=== PATIENT | female | born 1990 ===

== ENCOUNTER 2019-12-09 00:12 | Inpatient (IN) | payer SELFPAY ==
[2019-12-09] MEDS ORDERED: Sodium Chloride 0.9% 10 ML SDV IV PRN (00:31)
[2019-12-09] MEDS ORDERED: Misoprostol 200 MCG Tab PO PRN (00:31)
[2019-12-09] MEDS ORDERED: Carboprost Tromethamine 250 MCG/1 ML Amp IM PRN (00:31)
[2019-12-09] MEDS ORDERED: Terbutaline 1 MG/ML SDV SUBCUT PRN (00:31)
[2019-12-09] MEDS ORDERED: Lidocaine 1% 50 ML MDV INJECT PRN (00:31)
[2019-12-09] MEDS ORDERED: Water For Irrigation,Sterile 1,000 ML Container IRR PRN (00:31)
[2019-12-09] MEDS ORDERED: Ondansetron 4 MG/2 ML SDV IVPUSH PRN (00:31)
[2019-12-09] MEDS ORDERED: Nalbuphine 10 MG/1 ML Vial IVPUSH PRN (00:31)
[2019-12-09] MEDS ORDERED: Misoprostol 25 MCG (1/4 of 100 MCG) Tab PO PRN (00:31)
[2019-12-09] MEDS ORDERED: Sodium Chloride 0.9% 2.5 ML Syringe FLUSH PRN (00:31)
[2019-12-09] MEDS ORDERED: Methylergonovine 0.2 MG/1 ML Amp IM PRN (00:31)
[2019-12-09] MEDS ORDERED: Misoprostol 25 MCG (1/4 of 100 MCG) Tab VAG PRN (00:31)
[2019-12-09] MEDS ORDERED: Tranexamic Acid 1,000 MG in Sodium Chloride 0.9% 100 ML IV PRN (00:31)
[2019-12-09] MEDS ORDERED: Butorphanol 1 MG/ML SDV IVPUSH PRN (00:31)
[2019-12-09] MEDS ORDERED: Sodium Chloride 0.9% 10 ML Syringe FLUSH PRN (00:31)
[2019-12-09] MEDS ORDERED: Oxytocin/0.9 % Sodium Chloride 30 UNIT/500 ML BAG IV SCH ×2 (00:45)
[2019-12-09] MEDS: Lactated Ringers 1,000 ML IV SCH ×3 (00:54→07:03)
[2019-12-09] MEDS ORDERED: Ampicillin 2 GM in Sodium Chloride 0.9% 100 ML IV ONE (01:00)
[2019-12-09] MEDS ORDERED: Ampicillin 1 GM in Sodium Chloride 0.9% 50 ML IV SCH (05:00)
--- NOTE | 2019-12-09 05:12 | PCM.LDHP ---
L&D History of Present Illness - General Date of Service: 12/09/19 Admit Problem/Dx: Patient Status Order with Admit Dx/Problem 12/09/19 00:00 Patient Status [ADT] Routine Admission Diagnosis/Problem Admission Diagnosis/Problem 12/09/19 05:07 at 38 weeks (DHARMESH: 12/23/19) presenting for IOL due to hx of shoulder dystocia with first pregancy; A+, rubella immune, GBS positive; Source of Information: Patient History Limitations: Reports: No Limitations - History of Present Illness Improves with: Reports: None Worsens with: Reports: None Associated Symptoms: Reports: N - Related Data Allergies/Adverse Reactions: Allergies Allergy/AdvReac Type Severity Reaction Status Date / Time No Known Allergies Allergy Verified 12/09/19 00:25 Home Medications: Home Meds Esomeprazole [NexIUM] 20 mg PO DAILY 11/19/19 [History] Loratadine [Claritin] 1 tab PO PRN 12/09/19 [History] Past Medical History - Past Health History Medical/Surgical History: Denies Medical/Surgical History HEENT History: Reports: None Gastrointestinal History: Reports: 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: Psychiatric History: Reports: Anxiety - Infectious Disease History Infectious Disease History: Reports: Chicken Pox - Past Surgical History HEENT Surgical History: Reports: Oral Surgery GI Surgical History: Reports: Cholecystectomy Social & Family History - Family History Family Medical History: Noncontributory : Reports: Renal Disease/Insufficiency OBGYN: Reports: Endocrine/Metabolic: Reports: Diabetes, type II Oncologic: Reports: Colon - Tobacco Use Smoking Status *Q: Never Smoker - Caffeine Use Caffeine Use: Reports: Coffee - Recreational Drug Use Recreational Drug Use: No H&P Review of Systems - Review of Systems: Review Of Systems: See Below General: Reports: No Symptoms HEENT: Reports: No Symptoms Pulmonary: Reports: No Symptoms Cardiovascular: Reports: No Symptoms Gastrointestinal: Reports: No Symptoms Genitourinary: Reports: No Symptoms Musculoskeletal: Reports: No Symptoms Skin: Reports: No Symptoms Psychiatric: Reports: No Symptoms Neurological: Reports: No Symptoms Hematologic/Lymphatic: Reports: No Symptoms Immunologic: Reports: No Symptoms L&D Exam - Exam Exam: See Below - Vital Signs Weight: 216 lb - OB Specific Movement: Active Heart Tones: Present Heart Rate (FHR) Variability: Moderate (6-25 bmp) - Castro Score Castro Score Cervix Position: Midposition Castro Score Consistency: Soft Castro Score Effacement: 51-70% Castro Score Dilation: 3-4 cm Castro Score 's Station: -3 Castro Score Total: 7 - Exam General: Alert, Oriented, Cooperative Lungs: Normal Respiratory Effort Cardiovascular: Regular Rate, Regular Rhythm GI/Abdominal Exam: Soft, Non-Tender Rectal Exam: Deferred Genitourinary: Deferred Back Exam: Normal Inspection, Full Range of Motion Extremities: Normal Inspection, Normal Range of Motion, Non-Tender, Normal Capillary Refill Skin: Warm, Dry, Intact Psychiatric: Alert, Normal Affect, Normal Mood - Patient Data Lab Results Last 24 hrs: Laboratory Results - last 24 hr 12/09/19 12/09/19 Range/Units 00:43 00:43 WBC 10.28 (4.0-11.0) K/uL RBC 3.84 L (4.30-5.90) M/uL Hgb 11.3 L (12.0-16.0) g/dL Hct 35.3 L (36.0-46.0) % MCV 91.9 (80.0-98.0) fL MCH 29.4 (27.0-32.0) pg MCHC 32.0 (31.0-37.0) g/dL RDW Std Deviation 43.0 (28.0-62.0) fl RDW Coeff of Geremias 13 (11.0-15.0) % Plt Count 298 (150-400) K/uL MPV 10.80 (7.40-12.00) fL Blood Type A POSITIVE Antibody Screen NEGATIVE Result Diagrams: 12/09/19 00:43 - Problem List (1) Supervision of normal IUP (intrauterine ) in multigravida SNOMED Code(s): 764773552, 219343598, 046805237 ICD Code: Z34.80 - ENCOUNTER FOR SUPRVSN OF NORMAL , UNSP TRIMESTER Status: Acute Priority: High Current Visit: Yes Qualifiers: Trimester: third trimester Qualified Code(s): Z34.83 - Encounter for supervision of other normal , third trimester (2) History of shoulder dystocia in prior SNOMED Code(s): 502097915, 843328961 ICD Code: Z87.59 - PERSONAL HISTORY OF COMP OF PREG, CHLDBRTH AND THE PUERP Status: Acute Priority: High Current Visit: Yes Problem List Initiated/Reviewed/Updated: Yes Orders Last 24hrs: Active Orders 24 hr Category Date Time Status Patient Status [ADT] Routine ADT 12/09/19 00:00 Active Bedrest Bathroom Privileges [RC] ASDIRECTED Care 12/09/19 00:31 Active Communication Order [RC] ASDIRECTED Care 12/09/19 00:31 Active Communication Order [RC] ASDIRECTED Care 12/09/19 00:31 Active Communication Order [RC] ASDIRECTED Care 12/09/19 00:31 Active Heart Tones [RC] CONTINUOUS Care 12/09/19 00:31 Active Non Stress Test [RC] PER UNIT ROUTINE Care 12/09/19 00:31 Active May Shower [RC] ASDIRECTED Care 12/09/19 00:31 Active Notify Provider [RC] PRN Care 12/09/19 00:31 Active Notify Provider [RC] PRN Care 12/09/19 00:31 Active Notify Provider [RC] PRN Care 12/09/19 00:31 Active Notify Provider [RC] STAT Care 12/09/19 00:31 Active Oxygen Therapy [RC] ASDIRECTED Care 12/09/19 00:31 Active Up ad Nancie [RC] ASDIRECTED Care 12/09/19 00:31 Active Vaginal Exam [RC] PRN Care 12/09/19 00:31 Active Vaginal Exam [RC] PRN Care 12/09/19 00:31 Active Vital Signs [RC] PER UNIT ROUTINE Care 12/09/19 00:31 Active Vital Signs [RC] PER UNIT ROUTINE Care 12/09/19 00:31 Active RPR (SYPHILIS SERO) W/ RFLX [REF] Routine Lab 12/09/19 00:43 Received Ampicillin 1 gm Med 12/09/19 05:00 Active Sodium Chloride 0.9% [Normal Saline] 50 ml IV Q4H Butorphanol [Stadol] Med 12/09/19 00:31 Active 1 mg IVPUSH Q1H PRN Carboprost Tromethamine [Hemabate DS] Med 12/09/19 00:31 Active 250 mcg IM ASDIRECTED PRN Lactated Ringers [Ringers, Lactated] 1,000 ml Med 12/09/19 00:45 Active IV ASDIRECTED Lidocaine 1% [Xylocaine 1%] Med 12/09/19 00:31 Active 50 ml INJECT ONETIME PRN Methylergonovine [Methergine] Med 12/09/19 00:31 Active 0.2 mg IM ASDIRECTED PRN Nalbuphine [Nubain] Med 12/09/19 00:31 Active 10 mg IVPUSH Q1H PRN Ondansetron [Zofran] Med 12/09/19 00:31 Active 4 mg IVPUSH Q6H PRN Oxytocin/0.9 % Sodium Chloride [Oxytocin 30 Unit/500 ML Med 12/09/19 00:45 Active -NS] 30 unit in 500 ml IV TITRATE Oxytocin/0.9 % Sodium Chloride [Oxytocin 30 Unit/500 ML Med 12/09/19 00:45 Active -NS] 30 unit in 500 ml IV TITRATE Sodium Chloride 0.9% [Normal Saline] Med 12/09/19 00:31 Active 10 ml IV ASDIRECTED PRN Sodium Chloride 0.9% [Saline Flush] Med 12/09/19 00:31 Active 10 ml FLUSH ASDIRECTED PRN Sodium Chloride 0.9% [Saline Flush] Med 12/09/19 00:31 Active 2.5 ml FLUSH ASDIRECTED PRN Terbutaline [Brethine] Med 12/09/19 00:31 Active 0.25 mg SUBCUT ASDIRECTED PRN Tranexamic Acid [Cyklokapron] 1,000 mg Med 12/09/19 00:31 Active Sodium Chloride 0.9% [Normal Saline] 100 ml IV ONETIME Water For Irrigation,Sterile [Sterile Water for Med 12/09/19 00:31 Active Irrigation] 1,000 ml IRR ASDIRECTED PRN miSOPROStoL [Cytotec] Med 12/09/19 00:31 Active 200 mcg PO ONETIME PRN miSOPROStoL [Cytotec] Med 12/09/19 00:31 Active 25 mcg PO Q4H PRN miSOPROStoL [Cytotec] Med 12/09/19 00:31 Active 25 mcg VAG Q4H PRN Scalp Electrode [WOMSER] Per Unit Routine Oth 12/09/19 00:31 Ordered Medication Administration Instruction [OM.PC] Q3H Oth 12/09/19 00:45 Ordered Peripheral IV Insertion Adult [OM.PC] Routine Oth 12/09/19 00:31 Ordered Resuscitation Status Routine Resus Stat 12/09/19 00:31 Ordered Medication Orders Butorphanol Tartrate (Stadol) 1 mg IVPUSH Q1H PRN PRN Reason: Pain Carboprost Tromethamine (Hemabate Ds) 250 mcg IM ASDIRECTED PRN PRN Reason: Post Hemorrhage Ampicillin Sodium 1 gm/ Sodium (Chloride) 50 mls @ 100 mls/hr IV Q4H [facility] Last Admin: 12/09/19 04:42 Dose: 100 mls/hr Lactated Ringer's (Ringers, Lactated) 1,000 mls @ 150 mls/hr IV ASDIRECTED [facility] Last Infusion: 12/09/19 04:43 Dose: 150 mls/hr Infusion: 12/09/19 01:45 Dose: 0 mls/hr Admin: 12/09/19 00:54 Dose: 150 mls/hr Oxytocin/Sodium Chloride (Oxytocin 30 Unit/500 Ml-Ns) 30 unit in 500 mls @ 999 mls/hr IV TITRATE [facility] Oxytocin/Sodium Chloride (Oxytocin 30 Unit/500 Ml-Ns) 30 unit in 500 mls @ 2 mls/hr IV TITRATE [facility]; Protocol Tranexamic Acid 1,000 mg/ (Sodium Chloride) 110 mls @ 660 mls/hr IV ONETIME PRN PRN Reason: Bleeding Lidocaine HCl (Xylocaine 1%) 50 ml INJECT ONETIME PRN PRN Reason: Laceration repair Methylergonovine Maleate (Methergine) 0.2 mg IM ASDIRECTED PRN PRN Reason: Post Hemorrhage Misoprostol (Cytotec) 200 mcg PO ONETIME PRN PRN Reason: Post Hemorrhage Misoprostol (Cytotec) 25 mcg VAG Q4H PRN PRN Reason: Cervical Ripening Last Admin: 12/09/19 00:58 Dose: 25 mcg Misoprostol (Cytotec) 25 mcg PO Q4H PRN PRN Reason: Cervical Ripening Last Admin: 12/09/19 00:58 Dose: 25 mcg Nalbuphine HCl (Nubain) 10 mg IVPUSH Q1H PRN PRN Reason: Pain (severe 7-10) Ondansetron HCl (Zofran) 4 mg IVPUSH Q6H PRN PRN Reason: Nausea/Vomiting Sodium Chloride (Saline Flush) 10 ml FLUSH ASDIRECTED PRN PRN Reason: Keep Vein Open Sodium Chloride (Saline Flush) 2.5 ml FLUSH ASDIRECTED PRN PRN Reason: Keep Vein Open Sodium Chloride (Normal Saline) 10 ml IV ASDIRECTED PRN PRN Reason: IV Use Sterile Water (Sterile Water For Irrigation) 1,000 ml IRR ASDIRECTED PRN PRN Reason: delivery Terbutaline Sulfate (Brethine) 0.25 mg SUBCUT ASDIRECTED PRN PRN Reason: Tacysystole Assessment/Plan Comment:: Admit A: at 38 weeks (DHARMESH: 12/23/19), A+, Rubella immune, GBS positive P: Anticipate ; epidural PRN; Dr. Griggs updated.
--- NOTE | 2019-12-09 06:18 | PCM.PREANE ---
Preanesthetic Assessment - Anesthesia/Transfusion/Family Hx Anesthesia History: Prior Anesthesia Without Reaction Family History of Anesthesia Reaction: No Transfusion History: No Prior Transfusion(s) - Review of Systems General: No Symptoms Pulmonary: No Symptoms Cardiovascular: No Symptoms Gastrointestinal: No Symptoms Neurological: No Symptoms Other: Reports: None - Physical Assessment NPO Status Date: 12/09/19 NPO Status Time: 05:00 Height: 5 ft 2 in Weight: 97.976 kg ASA Class: 2 Mental Status: Alert & Oriented x3 Airway Class: Mallampati = 1 Dentition: Reports: Normal Dentition Thyro-Mental Finger Breadths: 3 ROM/Head Extension: Full Lungs: Clear to Auscultation, Normal Respiratory Effort Cardiovascular: Regular Rate, Regular Rhythm - Lab Values: Laboratory Last Values WBC 10.28 K/uL (4.0-11.0) 12/09/19 00:43 RBC 3.84 M/uL (4.30-5.90) L 12/09/19 00:43 Hgb 11.3 g/dL (12.0-16.0) L 12/09/19 00:43 Hct 35.3 % (36.0-46.0) L 12/09/19 00:43 MCV 91.9 fL (80.0-98.0) 12/09/19 00:43 MCH 29.4 pg (27.0-32.0) 12/09/19 00:43 MCHC 32.0 g/dL (31.0-37.0) 12/09/19 00:43 RDW Std Deviation 43.0 fl (28.0-62.0) 12/09/19 00:43 RDW Coeff of Geremias 13 % (11.0-15.0) 12/09/19 00:43 Plt Count 298 K/uL (150-400) 12/09/19 00:43 MPV 10.80 fL (7.40-12.00) 12/09/19 00:43 Blood Type A POSITIVE 12/09/19 00:43 Antibody Screen NEGATIVE 12/09/19 00:43 - Allergies Allergies/Adverse Reactions: Allergies Allergy/AdvReac Type Severity Reaction Status Date / Time No Known Allergies Allergy Verified 12/09/19 00:25 - Acknowledgements Anesthesia Type Planned: Epidural Pt an Appropriate Candidate for the Planned Anesthesia: Yes Alternatives and Risks of Anesthesia Discussed w Pt/Guardian: Yes Pt/Guardian Understands and Agrees with Anesthesia Plan: Yes PreAnesthesia Questionnaire - Past Health History Medical/Surgical History: Denies Medical/Surgical History HEENT History: Reports: None Gastrointestinal History: Reports: None [employer]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: Psychiatric History: Reports: Anxiety - Infectious Disease History Infectious Disease History: Reports: Chicken Pox - Past Surgical History HEENT Surgical History: Reports: Oral Surgery GI Surgical History: Reports: Cholecystectomy - SUBSTANCE USE Smoking Status *Q: Never Smoker Recreational Drug Use History: No - HOME MEDS Home Medications: Home Meds Esomeprazole [NexIUM] 20 mg PO DAILY 11/19/19 [History] Loratadine [Claritin] 1 tab PO PRN 12/09/19 [History] - CURRENT (IN HOUSE) MEDS Current Meds: Current Medications Butorphanol Tartrate (Stadol) 1 mg IVPUSH Q1H PRN PRN Reason: Pain Carboprost Tromethamine (Hemabate Ds) 250 mcg IM ASDIRECTED PRN PRN Reason: Post Hemorrhage Ampicillin Sodium 1 gm/ Sodium (Chloride) 50 mls @ 100 mls/hr IV Q4H [facility] Last Admin: 12/09/19 04:42 Dose: 100 mls/hr Lactated Ringer's (Ringers, Lactated) 1,000 mls @ 150 mls/hr IV ASDIRECTED [facility] Last Admin: 12/09/19 06:02 Dose: 999 mls/hr Oxytocin/Sodium Chloride (Oxytocin 30 Unit/500 Ml-Ns) 30 unit in 500 mls @ 999 mls/hr IV TITRATE [facility] Oxytocin/Sodium Chloride (Oxytocin 30 Unit/500 Ml-Ns) 30 unit in 500 mls @ 2 mls/hr IV TITRATE [facility]; Protocol Tranexamic Acid 1,000 mg/ (Sodium Chloride) 110 mls @ 660 mls/hr IV ONETIME PRN PRN Reason: Bleeding Lidocaine HCl (Xylocaine 1%) 50 ml INJECT ONETIME PRN PRN Reason: Laceration repair Methylergonovine Maleate (Methergine) 0.2 mg IM ASDIRECTED PRN PRN Reason: Post Hemorrhage Misoprostol (Cytotec) 200 mcg PO ONETIME PRN PRN Reason: Post Hemorrhage Misoprostol (Cytotec) 25 mcg VAG Q4H PRN PRN Reason: Cervical Ripening Last Admin: 12/09/19 00:58 Dose: 25 mcg Misoprostol (Cytotec) 25 mcg PO Q4H PRN PRN Reason: Cervical Ripening Last Admin: 12/09/19 00:58 Dose: 25 mcg Nalbuphine HCl (Nubain) 10 mg IVPUSH Q1H PRN PRN Reason: Pain (severe 7-10) Ondansetron HCl (Zofran) 4 mg IVPUSH Q6H PRN PRN Reason: Nausea/Vomiting Sodium Chloride (Saline Flush) 10 ml FLUSH ASDIRECTED PRN PRN Reason: Keep Vein Open Sodium Chloride (Saline Flush) 2.5 ml FLUSH ASDIRECTED PRN PRN Reason: Keep Vein Open Sodium Chloride (Normal Saline) 10 ml IV ASDIRECTED PRN PRN Reason: IV Use Sterile Water (Sterile Water For Irrigation) 1,000 ml IRR ASDIRECTED PRN PRN Reason: delivery Terbutaline Sulfate (Brethine) 0.25 mg SUBCUT ASDIRECTED PRN PRN Reason: Tacysystole Discontinued Medications Ampicillin Sodium 2 gm/ Sodium (Chloride) 100 mls @ 200 mls/hr IV ONETIME ONE Stop: 12/09/19 01:29 Last Admin: 12/09/19 00:54 Dose: 200 mls/hr
--- NOTE | 2019-12-09 08:38 | PCM.DEL ---
L & D Note - General Info Date of Service: 12/09/19 Mother's Due Date: 12/23/19 - Delivery Note Labor: Augmented by ARM, Augmented by Oxytocin Cervical Ripening Method: Misoprostil Delivery Outcome: Livebirth Delivery Method: Spontaneous Vaginal Delivery-Single Presentation: Vertex Nuchal Cord: None Anesthesia Type: Epidural Amniotic Fluid Description: Clear Episiotomy Type: None Laceration: None Placenta: Intact, Spontaneous Cord: 3 Vessels Estimated Blood Loss: 250 Resuscitation Needed: No [place]: Bulb Syringe, Stimulated Score 1 min: 8 Score 5 min: 9 Second Stage Interventions: Reports: Second Nurse Assessed Progress of Descent, Second Nurse Reviewed Contraction Pattern, Second Nurse Reviewed Heart Tones, Encouragement Given, Pushing Effectively, Pushing, Pulls Own Legs Back Delivery Comments (Free Text/Narrative):: viable male; epidural for pain relief; head delivered with good pushing, shoulders and body followed easily after; baby to mom's abdomen [id number] for assessment; APGARs 8/9; 7 lb 10 oz; placenta delivered grossly intact; 3VC; EBL 250 mL; perineum intact; pitocin to IVF; mom and baby left in stable condition with nurse at bedside for assessment - General Info Date of Service: 12/09/19 Admission Dx/Problem (Free Text): Patient Status Order with Admit Dx/Problem 12/09/19 00:00 Patient Status [ADT] Routine Admission Diagnosis/Problem Admission Diagnosis/Problem 12/09/19 05:07 at 38 weeks (DHARMESH: 12/23/19) presenting for IOL due to hx of shoulder dystocia with first pregancy; A+, rubella immune, GBS positive; Functional Status: Reports: Pain Controlled - Review of Systems General: Reports: No Symptoms HEENT: Reports: No Symptoms Pulmonary: Reports: No Symptoms Cardiovascular: Reports: No Symptoms Gastrointestinal: Reports: No Symptoms Genitourinary: Reports: No Symptoms Musculoskeletal: Reports: No Symptoms Skin: Reports: No Symptoms Neurological: Reports: No Symptoms Psychiatric: Reports: No Symptoms - Patient Data Weight - Most Recent: 216 lb Lab Results Last 24 Hours: Laboratory Results - last 24 hr 12/09/19 12/09/19 Range/Units 00:43 00:43 WBC 10.28 (4.0-11.0) K/uL RBC 3.84 L (4.30-5.90) M/uL Hgb 11.3 L (12.0-16.0) g/dL Hct 35.3 L (36.0-46.0) % MCV 91.9 (80.0-98.0) fL MCH 29.4 (27.0-32.0) pg MCHC 32.0 (31.0-37.0) g/dL RDW Std Deviation 43.0 (28.0-62.0) fl RDW Coeff of Geremias 13 (11.0-15.0) % Plt Count 298 (150-400) K/uL MPV 10.80 (7.40-12.00) fL Blood Type A POSITIVE Antibody Screen NEGATIVE Med Orders - Current: Current Medications Butorphanol Tartrate (Stadol) 1 mg IVPUSH Q1H PRN PRN Reason: Pain Carboprost Tromethamine (Hemabate Ds) 250 mcg IM ASDIRECTED PRN PRN Reason: Post Hemorrhage Ampicillin Sodium 1 gm/ Sodium (Chloride) 50 mls @ 100 mls/hr IV Q4H [facility] Last Admin: 12/09/19 04:42 Dose: 100 mls/hr Lactated Ringer's (Ringers, Lactated) 1,000 mls @ 150 mls/hr IV ASDIRECTED [facility] Last Admin: 12/09/19 07:03 Dose: 150 mls/hr Oxytocin/Sodium Chloride (Oxytocin 30 Unit/500 Ml-Ns) 30 unit in 500 mls @ 999 mls/hr IV TITRATE [facility] Last Admin: 12/09/19 08:10 Dose: 500 mls/hr Oxytocin/Sodium Chloride (Oxytocin 30 Unit/500 Ml-Ns) 30 unit in 500 mls @ 2 mls/hr IV TITRATE [facility]; Protocol Tranexamic Acid 1,000 mg/ (Sodium Chloride) 110 mls @ 660 mls/hr IV ONETIME PRN PRN Reason: Bleeding Lidocaine HCl (Xylocaine 1%) 50 ml INJECT ONETIME PRN PRN Reason: Laceration repair Methylergonovine Maleate (Methergine) 0.2 mg IM ASDIRECTED PRN PRN Reason: Post Hemorrhage Misoprostol (Cytotec) 200 mcg PO ONETIME PRN PRN Reason: Post Hemorrhage Misoprostol (Cytotec) 25 mcg VAG Q4H PRN PRN Reason: Cervical Ripening Last Admin: 12/09/19 00:58 Dose: 25 mcg Misoprostol (Cytotec) 25 mcg PO Q4H PRN PRN Reason: Cervical Ripening Last Admin: 12/09/19 00:58 Dose: 25 mcg Nalbuphine HCl (Nubain) 10 mg IVPUSH Q1H PRN PRN Reason: Pain (severe 7-10) Ondansetron HCl (Zofran) 4 mg IVPUSH Q6H PRN PRN Reason: Nausea/Vomiting Sodium Chloride (Saline Flush) 10 ml FLUSH ASDIRECTED PRN PRN Reason: Keep Vein Open Sodium Chloride (Saline Flush) 2.5 ml FLUSH ASDIRECTED PRN PRN Reason: Keep Vein Open Sodium Chloride (Normal Saline) 10 ml IV ASDIRECTED PRN PRN Reason: IV Use Sterile Water (Sterile Water For Irrigation) 1,000 ml IRR ASDIRECTED PRN PRN Reason: delivery Terbutaline Sulfate (Brethine) 0.25 mg SUBCUT ASDIRECTED PRN PRN Reason: Tacysystole Discontinued Medications Ampicillin Sodium 2 gm/ Sodium (Chloride) 100 mls @ 200 mls/hr IV ONETIME ONE Stop: 12/09/19 01:29 Last Admin: 12/09/19 00:54 Dose: 200 mls/hr - Exam General: Alert, Oriented, Cooperative Lungs: Normal Respiratory Effort Cardiovascular: Regular Rate, Regular Rhythm GI/Abdominal Exam: Soft, Non-Tender (Female) Exam: Normal External Exam Back Exam: Normal Inspection Extremities: Normal Inspection, Normal Capillary Refill Skin: Warm, Dry, Intact Neurological: No New Focal Deficit, Normal Speech, Normal Tone Psy/Mental Status: Alert, Normal Affect, Normal Mood - Problem List & Annotations (1) Supervision of normal IUP (intrauterine ) in multigravida SNOMED Code(s): 508991473, 526476913, 608801015 Code(s): Z34.80 - ENCOUNTER FOR SUPRVSN OF NORMAL , UNSP TRIMESTER Status: Acute Priority: High Current Visit: Yes Qualifiers: Trimester: third trimester Qualified Code(s): Z34.83 - Encounter for supervision of other normal , third trimester (2) History of shoulder dystocia in prior SNOMED Code(s): 851607905, 783823239 Code(s): Z87.59 - PERSONAL HISTORY OF COMP OF PREG, CHLDBRTH AND THE PUERP Status: Acute Priority: High Current Visit: Yes - Problem List Review Problem List Initiated/Reviewed/Updated: Yes - Plan Plan:: Admit A: at 38 weeks (DHARMESH: 12/23/19), A+, Rubella immune, GBS positive P: Anticipate ; epidural PRN; Dr. Griggs updated. Delivery A: viable male (Evgeny); APGARs 8/9, weight 7 lb 10 oz; placenta delivered grossly intact, scott, 3VC, EBL 250 mL; perineum intact; pitocin to IVF; mom and baby left in stable condition with nurse at bedside for assessment P: Routine plan of care; Dr. Griggs updated
[2019-12-09] MEDS ORDERED: Bisacodyl 10 MG Supp RECTAL PRN (08:41)
[2019-12-09] MEDS ORDERED: oxyCODONE 5 MG Tab PO PRN (08:41)
[2019-12-09] MEDS ORDERED: Lanolin 100% Cream 7 GM Tube TOP PRN (08:41)
[2019-12-09] MEDS ORDERED: Docusate Sodium 100 MG Cap PO PRN (08:41)
[2019-12-09] MEDS ORDERED: Acetaminophen 500 MG Tab PO PRN (08:41)
[2019-12-09] MEDS ORDERED: Ibuprofen 400 MG Tab PO PRN (08:41)
[2019-12-09] MEDS ORDERED: Benzocaine/Menthol 20%-0.5% Spray 78 GM Cannister TOP PRN (08:41)
[2019-12-09] MEDS ORDERED: Witch Hazel Medicated Pads 40/Jar TOP PRN (08:41)
--- NOTE | 2019-12-09 10:51 | PCM.POSTAN ---
POST ANESTHESIA ASSESSMENT - MENTAL STATUS Mental Status: Alert, Oriented - RESPIRATORY Respiratory Status: Respiratory Rate WNL, Airway Patent, O2 Saturation Stable - CARDIOVASCULAR CV Status: Pulse Rate WNL, Blood Pressure Stable - GASTROINTESTINAL GI Status: No Symptoms - POST OP HYDRATION Hydration Status: Adequate & Stable
[2019-12-09] MEDS: Ibuprofen 800 MG Tab PO PRN (18:44)
[2019-12-09] MEDS: Acetaminophen 500 MG Tab PO PRN (20:51)
[2019-12-10] MEDS: Ibuprofen 800 MG Tab PO PRN (05:21)
[2019-12-10] MEDS: Acetaminophen 500 MG Tab PO PRN (05:22)
--- NOTE | 2019-12-10 07:16 | PCM48HPAN ---
Post Anesthesia Note - EVALUATION WITHIN 48HRS OF ANESTHETIC Vital Signs in Normal Range: Yes Patient Participated in Evaluation: Yes Respiratory Function Stable: Yes Airway Patent: Yes Cardiovascular Function Stable: Yes Hydration Status Stable: Yes Pain Control Satisfactory: Yes Nausea and Vomiting Control Satisfactory: Yes Mental Status Recovered: Yes Vital Signs: Last Vital Signs Temp 96.4 F L 12/10/19 05:21 Pulse 78 12/10/19 05:21 Resp 18 12/10/19 05:21 BP 103/56 L 12/10/19 05:21 Pulse Ox 96 12/10/19 05:21
--- NOTE | 2019-12-10 10:30 | PCM.DCSUM1 ---
Discharge Summary - Hospital Course Free Text/Narrative:: Ruchi is a 29 yo PPD1 S/P uncomplicated to term NBM at 38.0 weeks gestation (DHARMESH: 12/23/2019). A pos, RI, GBS pos with adequate ampicillin prophylaxis prior to . Hemodynamically stable, afebrile. Patient is with difficulty and not obtaining adequate colostrum volume. Patient is supplementing with formula, lactating event management consultant pending. Patient is resting comfortably in bed with in the nursery. Patient reports she is eating, voiding, ambulating independently and without difficulty. Patient denies any problems or concerns at this time except moderate intermittent uterine cramping relieved with Tylenol and Ibuprofen. Patient reports moderate rubra lochia with passage of few small clots. Patient verbalizes her readiness to be discharged home today. Diagnosis: Stroke: No - Discharge Data Discharge Date: 12/10/19 Discharge Disposition: Home, Self-Care 01 Condition: Good - Referral to Home Health Primary Care Physician: PCP None - Discharge Diagnosis/Problem(s) (1) (normal spontaneous vaginal delivery) SNOMED Code(s): 30570002, 854239422 ICD Code: O80 - ENCOUNTER FOR FULL-TERM UNCOMPLICATED DELIVERY Status: Acute Priority: High Current Visit: Yes (2) Lactating, suppressed SNOMED Code(s): 55866669 ICD Code: O92.5 - SUPPRESSED Status: Acute Priority: High Current Visit: Yes - Patient Instructions Diet: Usual Diet as Tolerated, Regular Diet as Tolerated, Drink 8-10+ Glasses/ Day Activity: As Tolerated, No Lifting Over 20 Pounds Driving: May Drive Today Showering/Bathing: May Shower Showering/Bathing, Other: May utilize sitz baths for comfort of the perineum Notify Provider of: Fever, Increased Pain, Swelling and Redness, Drainage, Nausea and/or Vomiting - Discharge Plan *PRESCRIPTION DRUG MONITORING PROGRAM REVIEWED*: No *COPY OF PRESCRIPTION DRUG MONITORING REPORT IN PATIENT JOVANNA: No Prescriptions/Med Rec: Acetaminophen [Tylenol Extra Strength] 1,000 mg PO Q6H PRN #90 tablet PRN Reason: Pain Ibuprofen [Motrin] 800 mg PO Q8H PRN #90 tablet PRN Reason: Pain Home Medications: Home Meds Esomeprazole [NexIUM] 20 mg PO DAILY 11/19/19 [History] Loratadine [Claritin] 1 tab PO PRN 12/09/19 [History] Acetaminophen [Tylenol Extra Strength] 1,000 mg PO Q6H PRN #90 tablet 12/10/19 [ Rx] Ibuprofen [Motrin] 800 mg PO Q8H PRN #90 tablet 12/10/19 [Rx] Oxygen Therapy Mode: Room Air Referrals: [facility] [Outside] José Miguel Griggs MD [Physician] - 01/20/20 3:00 pm - Discharge Summary/Plan Comment DC Time >30 min.: Yes (November D/C home today) - General Info Date of Service: 12/10/19 Admission Dx/Problem (Free Text: Patient Status Order with Admit Dx/Problem 12/09/19 00:00 Patient Status [ADT] Routine Admission Diagnosis/Problem Admission Diagnosis/Problem 12/09/19 05:07 at 38 weeks (DHARMESH: 12/23/19) presenting for IOL due to hx of shoulder dystocia with first pregancy; A+, rubella immune, GBS positive; Functional Status: Reports: Pain Controlled - Review of Systems General: Reports: No Symptoms HEENT: Reports: No Symptoms Pulmonary: Reports: No Symptoms Cardiovascular: Reports: No Symptoms Gastrointestinal: Reports: No Symptoms Genitourinary: Reports: No Symptoms, Other (Moderate rubra lochia, small clots) Musculoskeletal: Reports: No Symptoms Skin: Reports: No Symptoms Neurological: Reports: No Symptoms Psychiatric: Reports: No Symptoms - Patient Data Vitals - Most Recent: Last Vital Signs Temp 96.4 F L 12/10/19 05:21 Pulse 78 12/10/19 05:21 Resp 18 12/10/19 05:21 BP 103/56 L 12/10/19 05:21 Pulse Ox 96 12/10/19 05:21 Weight - Most Recent: 216 lb Lab Results - Last 24 hrs: Laboratory Results - last 24 hr 12/10/19 Range/Units 05:51 Hgb 10.4 L (12.0-16.0) g/dL Hct 33.7 L (36.0-46.0) % Med Orders - Current: Current Medications Acetaminophen (Tylenol Extra Strength) 500 mg PO Q4H PRN PRN Reason: Pain Acetaminophen (Tylenol Extra Strength) 1,000 mg PO Q4H PRN PRN Reason: Pain Last Admin: 12/10/19 05:22 Dose: 1,000 mg Benzocaine/Menthol (Dermoplast Pain Relief 20%-0.5% [place]) 78 gm TOP ASDIRECTED PRN PRN Reason: Perineal Comfort Measure Last Admin: 12/09/19 22:56 Dose: 1 can Bisacodyl (Dulcolax) 10 mg RECTAL ONETIME PRN PRN Reason: Constipation Docusate Sodium (Colace) 100 mg PO BID PRN PRN Reason: Constipation Last Admin: 12/09/19 20:52 Dose: 100 mg Emollient Ointment (Lansinoh Hpa) 0 gm TOP ASDIRECTED PRN PRN Reason: Sore Nipples Ibuprofen (Motrin) 400 mg PO Q4H PRN PRN Reason: Pain Ibuprofen (Motrin) 800 mg PO Q6H PRN PRN Reason: Pain Last Admin: 12/10/19 05:21 Dose: 800 mg Oxycodone HCl (Oxycodone) 5 mg PO Q2H PRN PRN Reason: Pain Witch Mary (Tucks) 1 pad TOP ASDIRECTED PRN PRN Reason: comfort care Last Admin: 12/09/19 22:56 Dose: 1 tub Discontinued Medications Butorphanol Tartrate (Stadol) 1 mg IVPUSH Q1H PRN PRN Reason: Pain Carboprost Tromethamine (Hemabate Ds) 250 mcg IM ASDIRECTED PRN PRN Reason: Post Hemorrhage Ampicillin Sodium 2 gm/ Sodium (Chloride) 100 mls @ 200 mls/hr IV ONETIME ONE Stop: 12/09/19 01:29 Last Admin: 12/09/19 00:54 Dose: 200 mls/hr Ampicillin Sodium 1 gm/ Sodium (Chloride) 50 mls @ 100 mls/hr IV Q4H [facility] Last Admin: 12/09/19 04:42 Dose: 100 mls/hr Lactated Ringer's (Ringers, Lactated) 1,000 mls @ 150 mls/hr IV ASDIRECTED [facility] Last Admin: 12/09/19 07:03 Dose: 150 mls/hr Oxytocin/Sodium Chloride (Oxytocin 30 Unit/500 Ml-Ns) 30 unit in 500 mls @ 999 mls/hr IV TITRATE [facility] Last Admin: 12/09/19 08:05 Dose: 500 mls/hr Oxytocin/Sodium Chloride (Oxytocin 30 Unit/500 Ml-Ns) 30 unit in 500 mls @ 2 mls/hr IV TITRATE [facility]ENIA; Protocol Tranexamic Acid 1,000 mg/ (Sodium Chloride) 110 mls @ 660 mls/hr IV ONETIME PRN PRN Reason: Bleeding Lidocaine HCl (Xylocaine 1%) 50 ml INJECT ONETIME PRN PRN Reason: Laceration repair Methylergonovine Maleate (Methergine) 0.2 mg IM ASDIRECTED PRN PRN Reason: Post Hemorrhage Misoprostol (Cytotec) 200 mcg PO ONETIME PRN PRN Reason: Post Hemorrhage Misoprostol (Cytotec) 25 mcg VAG Q4H PRN PRN Reason: Cervical Ripening Last Admin: 12/09/19 00:58 Dose: 25 mcg Misoprostol (Cytotec) 25 mcg PO Q4H PRN PRN Reason: Cervical Ripening Last Admin: 12/09/19 00:58 Dose: 25 mcg Nalbuphine HCl (Nubain) 10 mg IVPUSH Q1H PRN PRN Reason: Pain (severe 7-10) Ondansetron HCl (Zofran) 4 mg IVPUSH Q6H PRN PRN Reason: Nausea/Vomiting Sodium Chloride (Saline Flush) 10 ml FLUSH ASDIRECTED PRN PRN Reason: Keep Vein Open Sodium Chloride (Saline Flush) 2.5 ml FLUSH ASDIRECTED PRN PRN Reason: Keep Vein Open Sodium Chloride (Normal Saline) 10 ml IV ASDIRECTED PRN PRN Reason: IV Use Sterile Water (Sterile Water For Irrigation) 1,000 ml IRR ASDIRECTED PRN PRN Reason: delivery Terbutaline Sulfate (Brethine) 0.25 mg SUBCUT ASDIRECTED PRN PRN Reason: Tacysystole - Exam General: Reports: Alert, Oriented HEENT: Reports: Pupils Equal, Pupils Reactive, Mucous Membr. Moist/[place] Neck: Reports: Supple Lungs: Reports: Clear to Auscultation, Normal Respiratory Effort Cardiovascular: Reports: Regular Rate, Regular Rhythm GI/Abdominal Exam: Normal Bowel Sounds, Soft, Non-Tender, No Organomegaly, No Distention (Female) Exam: Normal External Exam, Vaginal Bleeding (Moderate to large rubra lochia, scant small clots), Other (Uterus firm, U-1) Rectal (Female) Exam: Deferred Back Exam: Reports: Normal Inspection, Full Range of Motion Extremities: Normal Inspection, Normal Range of Motion, Non-Tender, No Pedal Edema, Normal Capillary Refill Skin: Reports: Warm, Dry, Intact Wound/Incisions: Reports: Healing Well Neurological: Reports: No New Focal Deficit Psy/Mental Status: Reports: Alert, Normal Affect, Normal Mood
== END 2019-12-10 12:34 | disposition home or self-care (01) | DRG 807 ==
LOC: MW.OBCHECK 00:12 → MW.OB 00:12 → MW.OBCHECK 00:13 → MW.OB 00:14 → OBSVTOIN 08:41 → MW.OB 12:01
PROVIDERS: ADMIT Obstetrics & Gynecology; ATTEND Obstetrics & Gynecology
PROC: 10E0XZZ Delivery of Products of Conception, External Approach (ICD-10-PCS; principal; 2019-12-09)
PROC: 10907ZC Drainage of Amniotic Fluid, Therapeutic from Products of Conception, Via Natural or Artificial Opening (ICD-10-PCS; 2019-12-09)
PROC: 3E0R3BZ Introduction of Anesthetic Agent into Spinal Canal, Percutaneous Approach (ICD-10-PCS; 2019-12-09)
DX: O99.344 Other mental disorders complicating childbirth (principal); Z37.0 Single live birth; O92.5 Suppressed lactation; F41.9 Anxiety disorder, unspecified; Z87.59 Personal history of other complications of pregnancy, childbirth and the puerperium; Z3A.38 38 weeks gestation of pregnancy
CPT/HCPCS: 01967; 36415; 51702; 59025; 59409; 85014; 85018; 85027; 86592; 86593; 86850; 86900; 86901; A9270-GY; J0290; J2590; J7050; J7120